=== PATIENT | male | born 1990 | race Caucasian/White ===

== ENCOUNTER → 2018-11-23 11:56 | Outpatient (CLI) | payer BC, SELFPAY ==
--- NOTE | 2018-11-23 12:32 | XR_ITS ---
XR knee LT 3V HISTORY: ITS.REASON: pain ORDERING PHYSICIAN: Jose Martin Hernandez APRN PATIENT AGE: 28 years COMPARISON: None FINDINGS: No fracture or dislocation. No lytic or blastic change. Normal mineralization. No significant arthritic changes evident. No other significant findings IMPRESSION: Negative Knee
--- NOTE | 2018-11-23 12:32 | XR_ITS ---
XR knee RT 3V HISTORY: ITS.REASON: pain ORDERING PHYSICIAN: Jose Martin Hernandez APRN PATIENT AGE: 28 years COMPARISON: None FINDINGS: No fracture or dislocation. No lytic or blastic change. Normal mineralization. No significant arthritic changes evident. No other significant findings IMPRESSION: Negative Knee
[2018-11-23 12:50] LABS: Basophils # 0.1 K/mm3 (0-0.2); Basophils % 0.5 % (0.1-2.0); Eosinophils # 0.2 K/mm3 (0.0-0.4); Eosinophils % 2.8 % (0.1-12.0); Hematocrit 43.2 % (42.0-52.0); Lymphocytes # 2.6 K/mm3 (0.7-4.5); Lymphocytes % 29.9 % (10-50); Mean Corpuscular HGB Conc 34.7 g/dL (31.8-35.4); Mean Corpuscular Hemoglobin 30.5 pg (27.0-31.2); Mean Corpuscular Volume 87.8 fl (80-94); Monocytes # 0.4 K/mm3 (0.1-1.0); Monocytes % 4.2 % (1.7-9.3); Neutrophils # 5.4 K/mm3 (1.8-7.8); Neutrophils % 62.6 % (37.0-80.0); Platelet Count 214 K/mm3 (142-424); Red Blood Count 4.93 M/mm3 (4.60-6.20); Red Cell Distribution Width 12.7 % (11.5-17.5); White Blood Count 8.7 K/mm3 (4.8-10.8)
[2018-11-23 14:16] LABS: Hemoglobin A1C 4.7 % (0.0-7.0)
[2018-11-23 14:29] LABS: Alanine Aminotransferase 28 U/L (12-78); Albumin Level 4.3 gm/dL (3.4-5.0); Albumin/Globulin Ratio 1.6 (1.1-1.8); Alkaline Phosphatase 54 U/L (46-116); Aspartate Amino Transferase 13 U/L (15-37); Bilirubin,Total 0.5 mg/dL (0.2-1.0); Blood Urea Nitrogen 9 mg/dL (7-18); Calcium 8.6 mg/dL (8.5-10.1); Carbon Dioxide 30 mmol/L (21.0-32.0); Chloride 103 mmol/L (98-107); Chol/HDL Ratio 4.9 (1-3.5); Cholesterol 153 mg/dL (140-200); Creatinine,Serum 0.72 mg/dL (0.70-1.30); Estimated Glomerular Filt Rate 128 ml/min (>60); Free T4 (Free Thyroxine) 0.96 ng/dl (0.76-1.46); GFR (African American) 155 ML/MIN (>60); Globulin 2.7 gm/dl (1.3-3.2); Glucose 89 mg/dL (74-106); HDL Cholesterol 31 mg/dL (27-67); LDL Cholesterol 99 mg/dL (0-130); Sodium 141 mmol/L (136-145); Thyroid Stimulating Hormone 0.97 uIU/ml (0.358-3.740); Triglycerides 115 mg/dL (30-200); VLDL Cholesterol 23 mg/dL (0-40)
[2018-11-23 14:30] LABS: C-Reactive Protein < 0.2 mg/L (0.0-0.9)
[2018-11-23 14:35] LABS: Erythrocyte Sedimentation Rate 3 mm/hr (0-15)
[2018-11-24 10:06] LABS: PSA, Free 0.15 ng/mL; Prostate Specific Ag 0.2 ng/mL (0.0-4.0); RA Latex Turbid. <10.0 IU/mL (0.0-13.9); Vitamin B12 728 pg/mL (232-1245); Vitamin D 25 Hydroxy 37.9 ng/mL (30.0-100.0)
[2018-11-24 12:17] LABS: Anti-Centromere B Antibodies <0.2 AI (0.0-0.9); Anti-Jo-1 <0.2 AI (0.0-0.9); Anti-Smith Antibody <0.2 AI (0.0-0.9); Antichromatin Antibodies <0.2 AI (0.0-0.9); Antiscleroderma-70 Antibodies <0.2 AI (0.0-0.9); RNP Antibodies <0.2 AI (0.0-0.9); Sjogren's Anti-SS-A <0.2 AI (0.0-0.9); Sjogren's Anti-SS-B <0.2 AI (0.0-0.9)
[2018-11-25 01:06] LABS: PTT-LA 41.3 sec (0.0-51.9); dRVVT 42.6 sec (0.0-47.0)
[2018-11-25 12:33] LABS: Lupus Reflex Interpretation Comment: (.)
[2018-11-25 12:36] LABS: Anti-Cyclic Citrullinated Pept 4 units (0-19); Anti-DNA (DS) Ab Qn <1 IU/mL (0-9)
== END ==
PROVIDERS: Nurse Practitioner Family; PCP Nurse Practitioner Family; Visit Provider Nurse Practitioner Family
DX: M25.562 Pain in left knee (principal); M25.561 Pain in right knee; R20.2 Paresthesia of skin; R53.83 Other fatigue
CPT/HCPCS: 36415; 73562; 80053; 80061; 82607; 82652; 82746; 83036; 84153; 84154; 84439; 84443; 85025; 85613; 85651; 86140; 86200; 86225; 86235; 86431

== ENCOUNTER → 2019-12-12 14:56 | Outpatient (CLI) | payer BC, SELFPAY ==
--- NOTE | 2019-12-12 15:05 | XR_ITS ---
PROCEDURE: XR FOOT WT BEARING RT 3V CLINICAL INDICATION: pain and numbness COMPARISON: No exams were available for comparison FINDINGS: No fracture or dislocation. No lytic or blastic change. There is normal mineralization. The joint spaces are well-preserved. No significant degenerative/arthritic changes. No erosive changes evident. Other findings:None. IMPRESSION: No acute findings. Dictated by: Leopoldo Renner MD 12/12/2019 15:22 Electronically signed by Leopoldo Renner MD in [place] 12/12/2019 15:22
--- NOTE | 2019-12-12 15:05 | XR_ITS ---
PROCEDURE: XR FOOT WT BEARING LT 3V CLINICAL INDICATION: pain and numbness COMPARISON: No exams were available for comparison FINDINGS: No fracture or dislocation. No lytic or blastic change. There is normal mineralization. The joint spaces are well-preserved. No significant degenerative/arthritic changes. No erosive changes evident. Other findings:There is mild varus angulation at the DIP joint of the 4th and 5th toes IMPRESSION: No acute findings. Dictated by: Leopoldo Renner MD 12/12/2019 15:21 Electronically signed by Leopoldo Renner MD in [place] 12/12/2019 15:21
== END ==
PROVIDERS: PCP Emergency Medicine; Visit Provider Podiatrist
DX: M79.672 Pain in left foot (principal); M79.671 Pain in right foot
CPT/HCPCS: 73630